=== PATIENT | female | born 1960 | race Caucasian/White ===

== ENCOUNTER 2019-08-02 11:40 | Emergency (ER) | payer MEDICAID ==
[~2019-08-02] VITALS: Ht 162.6 cm; Wt 64.4 kg
[2019-08-02 11:48] VITALS: BP_SYST 139
[2019-08-02 14:03] VITALS: BP_SYST 130
== END 2019-08-02 13:55 | disposition home or self-care (01) ==
LOC: SED 11:40
DX: S09.90XA Unspecified injury of head, initial encounter (principal); E11.9 Type 2 diabetes mellitus without complications; I10 Essential (primary) hypertension; W19.XXXA Unspecified fall, initial encounter; Y93.89 Activity, other specified; Y92.89 Other specified places as the place of occurrence of the external cause; Y99.8 Other external cause status
CPT/HCPCS: 70450-TC; 73030; 99284